=== PATIENT | male | born 2000 | race Hispanic/Latino ===

== ENCOUNTER 2020-07-08 21:13 | Emergency (ER) | payer OTHER ==
[2020-07-08] MEDS ORDERED: ACETAMINOPHEN EXTRA STRENGTH 500 MG TABLET ONE (21:33)
== END 2020-07-08 22:15 | disposition home or self-care (01) ==
LOC: EDH 21:13
DX: R50.9 Fever, unspecified (principal); R11.0 Nausea; Z20.828 Contact with and (suspected) exposure to other viral communicable diseases